=== PATIENT | female | born 1995 | race Hispanic/Latino ===

== ENCOUNTER 2021-07-19 09:47 | Outpatient (CLI) | payer OTHER ==
[2021-07-19 18:26] LABS: SARS-CoV-2 PCR by NAA Not Detected (NotDetected)
== END 2021-07-19 09:48 | disposition home or self-care (01) ==
LOC: CSHLAB 09:47
PROVIDERS: ATTEND Family Medicine
DX: Z20.822 Contact with and (suspected) exposure to COVID-19 (principal)
CPT/HCPCS: U0003; U0005

== ENCOUNTER 2021-07-22 18:00 | Inpatient (IN) | payer MEDICAID, OTHER, SELFPAY ==
[2021-07-22] MEDS ORDERED: Acetaminophen 500 MG TAB PO PRN (20:54)
[2021-07-22] MEDS ORDERED: Lidocaine 1% (PF) 30 ML VIAL SC PRN (20:54)
[2021-07-22] MEDS ORDERED: Carboprost 250 MCG/ML AMP IM PRN (20:54)
[2021-07-22] MEDS ORDERED: Misoprostol 200 MCG TAB PR PRN (20:54)
[2021-07-22] MEDS ORDERED: Methylergonovine 0.2 MG/ML VIAL IM PRN (20:54)
[2021-07-22] MEDS ORDERED: Ibuprofen 800 MG TAB PO PRN (20:54)
[2021-07-22] MEDS ORDERED: Diphenoxylate HCl/Atropine Tablet PO PRN (20:54)
[2021-07-22] MEDS ORDERED: Ondansetron PF 4 MG/2 ML Vial IVP PRN (20:54)
[2021-07-22] MEDS ORDERED: NS w/ Oxytocin 30 units 500 ML IV SCH ×2 (20:54)
[2021-07-22] MEDS ORDERED: Promethazine HCl 25 MG/ML VIAL IM PRN (20:54)
[2021-07-22] MEDS ORDERED: Butorphanol Tartrate 1 MG/ML VIAL SLOW IVP PRN (20:54)
[2021-07-22] MEDS ORDERED: hydrALAZINE 20 MG/ML VIAL SLOW IVP PRN (20:54)
[2021-07-22] MEDS ORDERED: HYDROcodone/Acetaminophen 5/325 mg Tablet PO PRN (20:54)
[2021-07-22 20:55] VITALS: BMI 35.3
[2021-07-22] MEDS: Lactated Ringer's 1,000 ML IV SCH (21:10)
[2021-07-22] MEDS ORDERED: Penicillin G Potassium 5 MILL.UNITS in Sodium Chloride 0.9% 100 ML IVPB SCH (21:15)
[2021-07-22 21:27] LABS: Hemoglobin 12.1 g/dL (12.0-15.5); Mean Corpuscular HGB CONC 34.4 g/dL (32.0-36.0); Mean Corpuscular Hemoglobin 30.2 pg (27.0-33.0); Mean Corpuscular Volume 87.8 fl (81.6-98.3); Mean Platelet Volume 11.3 fl (7.4-10.4); Platelet Count 173 10x3/uL (150-450); RBC Distribution Width 12.7 % (11.5-14.5); Red Blood Cell (RBC) Count 4.01 10x6/uL (3.90-5.03); White Blood Cell (WBC) Count 6.7 10x3/uL (3.5-10.5)
[2021-07-22 21:35] LABS: Glucose 108 mg/dL (70-105)
[2021-07-22 22:00] LABS: Hep B Surf Ag Non-Reactive S/CO (NonReactive)
[2021-07-22 22:01] LABS: Syphilis Antibody Nonreactive (Nonreactive); Syphilis Antibody Index 0.07 S/CO (<1.00 Non-Reactive)
[2021-07-23] MEDS: Penicillin G 2.5 MILL.units 2.5 MILL.UNITS in Premix Bag 1 BAG IVPB SCH ×3 (01:07→13:04)
[2021-07-23] MEDS: Misoprostol 100 MCG TAB PO SCH ×2 (01:07→05:13)
[2021-07-23] MEDS: Lactated Ringer's 1,000 ML IV SCH (05:14)
[2021-07-23] MEDS ORDERED: Benzocaine-Menthol 82.5 ML CAN TOP PRN (10:51)
[2021-07-23] MEDS ORDERED: HYDROcodone/Acetaminophen 5/325 mg Tablet PO PRN (10:51)
[2021-07-23] MEDS ORDERED: Ondansetron PF 4 MG/2 ML Vial IVP PRN (10:51)
[2021-07-23] MEDS ORDERED: Bisacodyl 10 MG SUPP PR PRN (10:51)
[2021-07-23] MEDS ORDERED: Boostrix 0.5 ML (Tdap) VIAL IM ONE (10:51)
[2021-07-23] MEDS ORDERED: NS w/ Oxytocin 30 units 500 ML IV SCH (10:51)
[2021-07-23] MEDS ORDERED: Promethazine HCl 25 MG/ML VIAL IM PRN (10:51)
[2021-07-23] MEDS ORDERED: diphenhydrAMINE 25 MG CAP PO PRN (10:51)
[2021-07-23] MEDS ORDERED: Milk Of Magnesia 30 ML UDCUP PO PRN (10:51)
[2021-07-23] MEDS ORDERED: hydrALAZINE 20 MG/ML VIAL SLOW IVP PRN (10:51)
[2021-07-23] MEDS: Ibuprofen 800 MG TAB PO SCH ×2 (13:33→21:32)
[2021-07-23] MEDS: Ferrous Sulfate 325 MG TAB PO SCH (17:36)
[2021-07-23] MEDS: Docusate 100 MG CAP PO SCH (21:32)
[2021-07-24] MEDS: Ibuprofen 800 MG TAB PO SCH ×2 (04:47→14:30)
[2021-07-24 07:25] VITALS: BP 106/59; TEMP 98.3
[2021-07-24] MEDS: Ferrous Sulfate 325 MG TAB PO SCH (07:39)
[2021-07-24] MEDS ORDERED: Prenatal Vitamin 1 TAB PO SCH (09:00)
[2021-07-24] MEDS: Docusate 100 MG CAP PO SCH (09:34)
== END 2021-07-24 15:02 | disposition home or self-care (01) | DRG 807 ==
LOC: CSHLD 20:38 → CSHPP 07-23 11:45
PROVIDERS: ADMIT Family Medicine; ATTEND Family Medicine
PROC: 10E0XZZ Delivery of Products of Conception, External Approach (ICD-10-PCS; principal; 2021-07-23)
PROC: 0KQM0ZZ Repair Perineum Muscle, Open Approach (ICD-10-PCS; 2021-07-23)
PROC: 10907ZC Drainage of Amniotic Fluid, Therapeutic from Products of Conception, Via Natural or Artificial Opening (ICD-10-PCS; 2021-07-23)
PROC: 3E0P7VZ Introduction of Hormone into Female Reproductive, Via Natural or Artificial Opening (ICD-10-PCS; 2021-07-23)
PROC: 3E033VJ Introduction of Other Hormone into Peripheral Vein, Percutaneous Approach (ICD-10-PCS; 2021-07-23)
DX: O24.420 Gestational diabetes mellitus in childbirth, diet controlled (principal); Z37.0 Single live birth; O99.824 Streptococcus B carrier state complicating childbirth; Z3A.39 39 weeks gestation of pregnancy; O70.1 Second degree perineal laceration during delivery; O71.82 Other specified trauma to perineum and vulva
CPT/HCPCS: 36415; 36416; 82947; 85027; 86780; 86850; 86900; 86901; 87340; J0595; J2540; J2590; J3490; J7120